=== PATIENT | female | born 1960 | race Caucasian/White ===

== ENCOUNTER 2022-04-17 14:39 | Emergency (ER) | payer MEDICARE, MEDICAID ==
[2022-04-17 15:43] LABS: ESTIMATED GFR 83 mL/min (>60)
== END 2022-04-17 16:45 | disposition home or self-care (01) ==
LOC: FB.ED 14:39
DX: R07.89 Other chest pain (principal); I10 Essential (primary) hypertension; Z79.899 Other long term (current) drug therapy; Z79.82 Long term (current) use of aspirin
CPT/HCPCS: 36415; 71045; 80053; 83880; 84484; 85025; 85379; 85610; 85730; 93005; 99285-25

== ENCOUNTER 2025-01-09 11:59 | Emergency (ER) | payer MEDICARE, MEDICAID ==
[2025-01-09] MEDS ORDERED: Sodium Chloride 0.9% 10 ML Syringe FLUSH PRN (12:14)
[2025-01-09] MEDS: Nitroglycerin 0.4 MG Tab.SL SL PRN (12:28)
[2025-01-09 12:29] LABS: BASOPHILS ABSOLUTE AUTO 0.0 x10-3/uL (0.0-0.1); BASOPHILS PERCENT AUTO 0.4 % (0.2-1.5); EOSINOPHILS ABSOLUTE AUTO 0.1 x10-3/uL (0.0-0.8); EOSINOPHILS PERCENT AUTO 1.4 % (0.6-8.1); LYMPHOCYTES ABSOLUTE AUTO 4.9 x10-3/uL (1.0-4.4); LYMPHOCYTES PERCENT AUTO 52.6 % (18.4-52.1); MEAN PLATELET VOLUME 8.2 fL (7.1-12.4); MONOCYTES ABSOLUTE AUTO 0.4 x10-3/uL (0.3-1.0); MONOCYTES PERCENT AUTO 4.1 % (4.4-15.7); NEUTROPHILS ABSOLUTE AUTO 3.9 x10-3/uL (1.5-6.3); NEUTROPHILS PERCENT AUTO 41.5 % (30.8-76.2); PLATELET COUNT,PLT 175 x10(3)uL (151-488); RED BLOOD CELL COUNT 4.41 x10(6)uL (3.60-5.20); RED CELL DISTRIBUTION WIDTH 13.3 % (12.3-16.5); WHITE BLOOD CELL COUNT,WBC 9.4 x10-3/uL (3.0-10.3)
[2025-01-09 12:35] LABS: BLOOD UREA NITROGEN,BUN 17 mg/dL (7-18); CARBON DIOXIDE,CO2 29 mmol/L (21-32); CHLORIDE,CL 105 mmol/L (100-110); CREATININE 0.8 mg/dL (0.55-1.02); EST CRCL DRUG DOSING (CG) 59.73 mL/min; ESTIMATED GFR 81 mL/min (>60); GLUCOSE RANDOM 90 mg/dL (80-116); POTASSIUM,K 3.8 mmol/L (3.5-5.3); SODIUM,NA 142 mmol/L (135-145)
[2025-01-09 12:40] LABS: A/G RATIO 1.6; ALANINE AMINOTRANSFERASE,ALT 31 U/L (12-36); ASPARTATE AMNIOTRANSFERASE,AST 19 IU/L (5-25); BILIRUBIN TOTAL 0.6 mg/dL (0.1-1.3); INR 0.9 (1.00-1.24); PROTEIN TOTAL,TP 7.0 g/dL (6.0-8.0)
[2025-01-09 12:42] LABS: PTT,PARTIAL THROMBOPLSTIN TIME 25.2 SECONDS (24.4-33.2)
[2025-01-09] MEDS: Alum Hydroxide/Mag Hydroxide 15 ML, Lidocaine 2% 15 ML PO ONE (12:42)
[2025-01-09 12:47] LABS: PRO B-TYPE NATRIUR PEPT,BNPPRO 70.0 pg/mL (<=125)
== END 2025-01-09 13:12 | disposition home or self-care (01) ==
LOC: FB.ED 11:59
DX: K21.9 Gastro-esophageal reflux disease without esophagitis (principal); I10 Essential (primary) hypertension; E78.00 Pure hypercholesterolemia, unspecified; Z79.82 Long term (current) use of aspirin; Z79.899 Other long term (current) drug therapy; Z90.49 Acquired absence of other specified parts of digestive tract; Z90.710 Acquired absence of both cervix and uterus
CPT/HCPCS: 71045; 80053; 83880; 84484; 85025; 85610; 85730; 93005; 99285; A9270